=== PATIENT | male | born 1995 | race Hispanic/Latino ===

== ENCOUNTER 2020-07-24 13:57 | Emergency (ER) | payer OTHER, SELFPAY ==
[2020-07-24 14:13] VITALS: BP 137/96; PULSE 97; RESP 20; TEMP 36.8; O2SAT 98; BMI 27.3
--- NOTE | 2020-07-24 14:49 | PC.NURSE ---
patient was covid positive 3 weeks ago
--- NOTE | 2020-07-24 14:50 | PC.NURSE ---
He comes into the ED today with complaints of SOB on exertion. He tested pos 3 weeks ago and still has a cough that he states is producing green sputum. His lungs sounds are clear across all hernandez and his 02 saturation is 100% on RA.
[2020-07-24] MEDS: ALBUTEROL HFA PREPACK 1 BOX MISC (14:53)
[2020-07-24 15:07] VITALS: PULSE 90; RESP 18; O2SAT 97
--- NOTE | 2020-07-24 15:20 | DI.RAD.S_ITS ---
PROCEDURE: XR CHEST 1V INDICATIONS: Short of breath, COVID + TECHNIQUE: One view of the chest was acquired. COMPARISON: None. FINDINGS: Surgical changes and devices: None. Lungs and pleura: Lungs are clear. No pleural effusions or pneumothorax. Mediastinum: Mediastinal contours appear normal. Heart size is normal. Bones and chest wall: No suspicious bony lesions. Overlying soft tissues appear unremarkable. IMPRESSION: No ángela, focal infiltrates are seen in this patient with this given history. Please consider short-term follow-up. Dictated by: Denzel Bhat M.D. on 07/24/2020 at 14:44 Approved by: Denzel Bhat M.D. on 07/24/2020 at 14:44
--- NOTE | 2020-07-24 15:55 | ED_ITS ---
HPI - SOB/Dyspnea General Chief Complaint: Shortness of Breath/Dyspnea Stated Complaint: SHORTNESS BREATH/ TIRED COVID SYMPTOMS Time Seen by Provider: 07/24/20 15:15 Source: patient Mode of arrival: Ambulatory Limitations: no limitations History of Present Illness HPI Narrative: This is a 24-year-old male who comes emergency department with complaint of COVID symptoms. Patient was diagnosed approximately 3 weeks ago. He had fevers initially but had they have since resolved. Continues to have some chest discomfort but does not really describe it as pain he describes it more as pressure. He has also had some shortness of breath particularly with exertion. He states this is not worsening but just has not improved. He has had a persistent cough which sometimes has some greenish to clearish productive sputum. He states this is intermittent. He has not any nausea or vomiting denies any diarrhea constipation. Denies any urinary symptoms. Denies any swelling in extremities. Denies any rashes or skin changes. Patient states he was retested for COVID today at outside facility and has not received the result. Patient states his main goal is to return to work. He denies any other medical issues. No prior surgeries. No allergies to medications. No tobacco, occasional alcohol. No illicit use. Related Data Previous Rx's Medication Instructions Recorded benzonatate [Tessalon Perles] 100 mg PO TID PRN #30 cap 07/24/20 Review of Systems Review of Systems ROS Unobtainable: All systems reviewed & are unremarkable except as noted in HPI and below Patient History Social History Smoking Status: Never smoker Smoking Status: Never smoker alcohol intake frequency: a few times a week Substance Use Type: does not use Exam Narrative Exam Narrative: GENERAL: Alert and oriented x three, well-nourished male in mild distress. HEENT: Head normocephalic, atraumatic, EOMI, pupils reactive, face symmetric, moist mucous membranes NECK: Supple, full range of motion CARDIOVASCULAR: Regular rate and rhythm without murmurs, rubs or gallops. RESPIRATORY: Breath sounds equal bilaterally, no wheezes rales or rhonchi. No tachypnea accessory muscle use. Patient has dry cough on exam intermittently. ABDOMEN: Soft, nontender. Normoactive bowel sounds all 4 quadrants. No guarding or rebound, rigidity, no mass : No CVA tenderness EXTREMITIES: Normal range of motion, no clubbing or edema. Neurovascularly intact NEUROLOGICAL: Cranial nerves II through XII grossly intact. Moving all extremities SKIN: Warm, dry, no petechiae, no rashes or lesions. Initial Vital Signs Initial Vital Signs: Vital Signs Temperature 98.2 F 07/24/20 14:13 Pulse Rate 97 H 07/24/20 14:13 Respiratory Rate 20 07/24/20 14:13 Blood Pressure 137/96 H 07/24/20 14:13 Pulse Oximetry 98 07/24/20 14:13 Course Orders Ordered: ED Orders 07/24/20 15:20 XR chest 1V Stat Discontinued Medications Albuterol (Albuterol Hfa Prepack) 1 box MISC SEEINSTR ONE Stop: 07/24/20 14:51 Last Admin: 07/24/20 14:53 Dose: 1 box Documented by: GARRETT Vital Signs Vital signs: Vital Signs - 8 hr 07/24/20 14:13 07/24/20 15:07 07/24/20 16:59 Temperature 98.2 F Pulse Rate 97 H 90 88 Respiratory Rate 20 18 20 Blood Pressure 137/96 H 132/62 Pulse Oximetry 98 97 98 MDM - SOB/Dyspnea Imaging Data Chest x-ray: Radiologist's Impression: [address] [id number] ReportSigned Patient: Nahomy Gagnon#: [id number]: 1995Acct:[id number]/Sex: 24 / MDate of Service: 07/24/20Loc: EDAccession Number: [id number] Procedure: XR chest 1V Ordering Provider: Mia Boyle D.O. PROCEDURE: XR CHEST 1V INDICATIONS: Short of breath, COVID + TECHNIQUE: One view of the chest was acquired. COMPARISON: None. FINDINGS: Surgical changes and devices: None. Lungs and pleura: Lungs are clear. No pleural effusions or pneumothorax. Mediastinum: Mediastinal contours appear normal. Heart size is normal. Bones and chest wall: No suspicious bony lesions. Overlying soft tissues appear unremarkable. IMPRESSION: No ángela, focal infiltrates are seen in this patient with this given history. Please consider short-term follow-up. Dictated by: Denzel Bhat M.D. on 07/24/2020 at 14:44 Approved by: Denzel Bhat M.D. on 07/24/2020 at 14:44 [facility] Narrative Medical decision making narrative: This is a 24-year-old male who comes with continued symptoms but no worsening symptoms from COVID. Patient states his main goal to return to work. He was tested outside facility today and has not received results on his repeat COVID testing. Chest x-ray was obtained does not show any pneumonia at this time. Patient was given prescription for Tessalon Perles for cough. He found to albuterol actually caused him to cough little bit more and maybe give him some mild improvement and was given a albuterol puffer with spacer here in the department. Return precautions were discussed. Discussed with patient if he is negative and asymptomatic he can return to work. If he is negative but still have symptoms I would contact his place of work for their specific policy. Discharge Plan Departure Patient Disposition: Home Clinical Impression: COVID-19 virus infection, Cough Instructions: DI for COVID-19 (Suspected or Confirmed ) Activity Restrictions/Additional Instructions: *You have been diagnosed with covid infection. If your covid test from earlier today is negative. You and you are asymptomatic for two days you can return to work. Verify your work policy if you are negative but continue to have mild symptoms. You may use albuterol inhaler 1-2 puffs every 4 hours as needed if you find this helpful. You may also use Tessalon Perles every 8 hours as needed for cough. Prescription to [facility] in [place]. If you wish you may obtain a pulse oximeter for use at home to monitor. Please return to the ER if your pulse oximeter shows an O2 saturation less than 94%. *What to do: * per recommendations from the CDC and the [facility] Department of Health * stay home except to get medical care. Restrict activities outside your home, except for getting medical care. Do not go to work, school, or public areas. Avoid using public transportation, ride sharing, or taxis. * separate yourself from other people in your home. * call ahead before visiting your doctor * Wear a face mask * Cover your coughs and sneezes * Clean your hands often * Avoid sharing household items * Clean all high-touch services every day * Monitor your symptoms and seek prompt medical attention if your illness is worsening, particularly with difficulty in breathing. Discussed continuing home isolation * for individuals with symptoms who are confirmed or suspected cases of COVID-19 and are directed to care for themselves at home, discontinue home iso lation under the following conditions: 1. At least 72 hours have passed since recovery, defined as resolution of fever without the use of fever reducing medications, and improvement in respiratory symptoms (cough, shortness of breath) AND, 2. At least 7 days have passed since symptoms 1st appeared Individuals with laboratory confirmed COVID-19 who have not had any symptoms may discontinue home isolation when at least 7 days have passed since the date of their 1st COVID-19 diagnostic test and have had no subsequent illness Prescriptions: New benzonatate [Tessalon Perles] 100 mg capsule 100 mg PO TID PRN (Reason: cough) Qty: 30 RF: 0 Stand Alone Forms: Work Release Note
[2020-07-24 16:59] VITALS: BP 132/62; PULSE 88; RESP 20; O2SAT 98
== END 2020-07-24 16:59 | disposition home or self-care (01) ==
PROVIDERS: Emergency Provider Emergency Medicine
DX: U07.1 COVID-19 (principal); R05 Cough; R06.02 Shortness of breath
CPT/HCPCS: 71045; 94640; 99281; 99283